=== PATIENT | female | born 1955 | race Caucasian/White ===

== ENCOUNTER → 2023-09-10 13:04 | Outpatient (REF) | payer MEDICARE, SELFPAY | LOC: RAD 13:04 | PROVIDERS: ATTENDING PHYSICIAN Nurse Practitioner Adult Health; FAMILY PHYSICIAN Nurse Practitioner | DX: C34.12 Malignant neoplasm of upper lobe, left bronchus or lung (principal) | CPT/HCPCS: 71260; Q9967 ==

== ENCOUNTER → 2023-11-28 08:11 | Outpatient (REF) | payer MEDICARE, SELFPAY | LOC: HWRAD 08:11 | PROVIDERS: ATTENDING PHYSICIAN Internal Medicine Hematology & Oncology; FAMILY PHYSICIAN Nurse Practitioner | DX: C34.12 Malignant neoplasm of upper lobe, left bronchus or lung (principal) | CPT/HCPCS: 71260; 74177; Q9967 ==

== ENCOUNTER → 2024-01-17 08:41 | Outpatient (REF) | payer MEDICARE, SELFPAY | LOC: PAVMRI 08:41 | PROVIDERS: ATTENDING PHYSICIAN Internal Medicine; FAMILY PHYSICIAN Nurse Practitioner; OTHER PHYSICIAN Internal Medicine Hematology & Oncology | DX: C34.91 Malignant neoplasm of unspecified part of right bronchus or lung (principal); J91.0 Malignant pleural effusion; C34.90 Malignant neoplasm of unspecified part of unspecified bronchus or lung; C80.1 Malignant (primary) neoplasm, unspecified | CPT/HCPCS: 70553 ==

== ENCOUNTER → 2024-04-27 09:19 | Outpatient (REF) | payer MEDICARE, SELFPAY | LOC: HWRAD 09:19 | PROVIDERS: ATTENDING PHYSICIAN Internal Medicine Hematology & Oncology; FAMILY PHYSICIAN Nurse Practitioner; REFERRING PHYSICIAN Internal Medicine | DX: C34.12 Malignant neoplasm of upper lobe, left bronchus or lung (principal) | CPT/HCPCS: 71260; 74177; Q9967 ==

== ENCOUNTER 2024-06-01 09:52 | Emergency (ER) | payer MEDICARE, SELFPAY ==
[2024-06-01 09:57] VITALS: BP 107/65
[2024-06-01 10:11] VITALS: BMI 21.0
[2024-06-01 10:33] LABS: % Basophils 0.5 % (0-2); % Eosinophils 0.6 % (0-6); % Immature Granulocytes 0.6 % (0-0.5); % Lymphocytes 7.8 % (20.5-51.1); % Monocytes 5.1 % (1.7-9.3); % Neutrophils 85.4 % (42.2-75.2); Absolute Lymphocytes 0.5 10^3/uL (1.2-3.4); Absolute Monocytes 0.3 10^3/uL (0.1-0.6); Absolute Neutrophils 5.7 10^3/uL (1.4-6.5); Hematocrit 35.7 % (37.0-47.0); Hemoglobin 12.1 g/dL (12.0-16.0); Mean Corp Hgb Conc. 33.9 g/dL (33.0-37.0); Mean Corpuscular Hgb 31.4 pg (27.0-31.0); Mean Corpuscular Volume 92.7 fL (81.0-99.0); Nucleated Red Blood Cells % 0 %; Platelet Count 141 10^3/uL (130-400); Red Blood Cell Count 3.85 10^6/uL (4.20-5.40); Red Cell Dist. Width 13.1 % (11.5-14.5); White Blood Cell Count 6.6 10^3/uL (4.8-10.8)
--- NOTE | 2024-06-01 10:47 | ED.GENMED ---
History of Present Illness
General
Chief Complaint: Dizziness
Source: patient
Exam Limitations: none
Time Seen by Provider: 06/01/24 10:09
Nursing documentation reviewed up to this point in time: agreed with
History of Present Illness
History of Present Illness:
68-year-old female past medical history of lung cancer currently on oral meds, asthma presenting to the emergency department today with concerns of room 20 dizziness starting roughly an hour ago while sitting at home also associated nausea and
vomiting symptoms improved with sitting very still. Had similar symptoms last year and saw vestibular rehab for this. Improved on their own. She did not take any medication for her symptoms today denies any chest pain shortness breath
palpitations.
Past History
Past History
ED Past Medical History: Asthma and Cancer
ED Past Surgical History: Gynecological
Social History
Tobacco: Former smoker
Review of Systems
Review of Systems
Allergies reviewed?: Yes
All Other Systems: ROS reviewed and negative except as documented in HPI and ROS
Phy Exam
Physical Exam
Physical Exam:
GENERAL: Alert , in no apparent distress
EYE: Reproducible horizontal nystagmus with head movement. Pupils equal and reactive
NECK: Supple, no significant adenopathy.
ENT: o/p clr, mmm.
CARDIAC: Regular rate and rhythm .
LUNGS: Clear breath sounds bilaterally, no acute respiratory distress, no wheezes/rales/rhonchi
ABDOMEN: Soft, without focal tenderness, no r/g, no cvat
NEUROLOGICAL: Alert and oriented, no focal neuro deficits
SKIN: Warm and dry, skin intact.
MUSCULOSKELETAL: No edema, well perfused.
PSYCH: Normal and appropriate interaction.
Course
Orders/Labs/Results
Orders:
Orders
06/01/24 10:14
Electrocardiogram (*1) Urgent
Reason for Study: Chest Pain
Cardiac Monitoring- Treatment ONCE
EKG- Treatment ONCE
06/01/24 10:24
Complete Blood Count/With Diff Urgent
Comprehensive Metabolic Panel Urgent
06/01/24 10:26
Pt Eval And Treat Urgent
Treatment: vestibular
Activity Level: Ambulate
06/01/24 11:36
Meclizine [Antivert] 25 mg PO NOW STA
06/01/24 12:29
Urinalysis Reflex To Culture Urgent
Date Specimen was Collected: 06/01/24
Time Specimen was Collected: 12:29
Abnormal Lab Results
06/01/24
10:24
RBC 3.85 L 10^6/uL
(4.20-5.40)
Hct 35.7 L %
(37.0-47.0)
MCH 31.4 H pg
(27.0-31.0)
Absolute Lymphs (auto) 0.5 L 10^3/uL
(1.2-3.4)
Immature Gran % 0.6 H %
(0-0.5)
Neutrophils % 85.4 H %
(42.2-75.2)
Lymphocytes % 7.8 L %
(20.5-51.1)
Glucose 109 H mg/dl
(70-99)
06/01/24 10:24
06/01/24 10:24
Vital Signs
Initial and Last Documented VS:
Initial Vital Signs
Temp Pulse Resp BP Pulse Ox
98.2 F 61 16 107/65 98
06/01/24 09:57 06/01/24 09:57 06/01/24 09:57 06/01/24 09:57 06/01/24 09:57
Last Documented Vital Signs
Temp Pulse Resp BP Pulse Ox
98.2 F 64 13 128/62 100
06/01/24 09:57 06/01/24 13:15 06/01/24 13:15 06/01/24 13:00 06/01/24 13:15
MDM/Problems Addressed
MDM/Problems Addressed:
68-year-old female presenting to the emergency department today with concerns of room spinning dizziness starting this morning without specific inciting event associated nausea and vomiting when dizzy denies additional associated symptoms. Here
vital signs are normal neurologic examination is normal other than horizontal nystagmus that is reproducible only with movement when sitting still it is fatigable. Patient was seen by vestibular rehab and felt symptoms consistent with neuritis.
Otherwise here labs unremarkable urinalysis normal EKG normal. Patient was given meclizine with full resolution of symptoms. Symptoms seem unlikely be consistent with central process advised for symptomatic management at home and ENT follow-up as
needed.
*Critical Care Note
Total Time (30-74mins, 75-104mins- exclusive of procedures): Not Applicable
ED Attending Note
-
Portions of this chart may have been created with voice recognition software.� Occasional wrong word or��sound alike� substitutions may have occurred due to the inherent limitations of voice recognition software.
Discharge Plan
Departure
Patient Disposition: Home (Routine Discharge)
Date of Disposition: 06/01/24
Time of Disposition: 13:48
Patient with high blood pressure during this ER visit?: No
Condition: Good
Covid-19: Not Applicable
Discharge Problem:
Vertigo
Instructions: Vertigo (a Type of Dizziness) (DC)
Prescriptions:
New
meclizine 25 mg tablet
25 mg PO TID PRN (Reason: dizziness) Qty: 7 0RF
No Action
Vitamin C 1,000 mg Tablet Extended Release
1,000 mg PO DAILY
folic acid 400 mcg Tablet
0.4 mg PO DAILY
vitamin B complex Tablet
1 tab PO DAILY
choline Capsule
1 cap PO DAILY
vitamin E-selenium 400-50 unit-mcg Tablet
1 tab PO DAILY
melatonin 1 mg Tablet
1 mg PO HS PRN (Reason: Insomnia)
Vitamin W72-Yzaly Tablet
1 tab PO DAILY
Vitamin D (with calcium) 77-400 mg-unit Tablet
1 tab PO DAILY
calcium citrate 250 mg calcium Tablet
500 mg PO DAILY
Probiotic 3 billion cell Capsule
3,000 mmu cells PO WEEKLY
biotin 1,000 mcg Tablet,Chewable
1,000 mcg PO DAILY
lidocaine [Lidoderm] 5 % adhesive patch,medicated
1 patch topical DAILY Qty: 15 0RF
hydrocodone-acetaminophen 5-325 mg tablet
1 tab PO Q8H PRN (Reason: Pain) Qty: 10 0RF
Referrals:
Matilde Dodge MD [Family Provider] -
Yuan Romeo MD [Active] - Follow up in 5-7 days
Activity Restrictions/Additional Instructions:
You came to the emergency department today with concerns of dizziness. Here he had a reassuring assessment. Please follow closely with ENT. Return to the emergency department any worsening, new or concerning symptoms.
Interventions
Interventions:
*Risk Screen - Suicide Last Done: 06/01/24 09:59
*General Assessment Last Done: 06/01/24 10:11
*Neglect/Abuse Screening Last Done: 06/01/24 09:59
ED- Fall Risk Assessment Last Done: 06/01/24 10:32
*ED COVID-19 Vaccine History Last Done: 06/01/24 10:11
ED- Neurological Assessment Last Done: 06/01/24 10:32
ED- Cardiac Assessment Last Done: 06/01/24 10:32
ED Swallowing Screen Last Done: 06/01/24 10:32
Discharge Date and Time
Print Language: LUX[place]GISH
[2024-06-01 10:48] LABS: ALT (SGPT) 23 U/L (0-35); AST (SGOT) 25 U/L (14-36); Albumin 4.2 g/dl (3.5-5.0); Alkaline Phosphatase 55 U/L (38-126); Blood Urea Nitrogen 16 mg/dl (7-17); Calcium 9.3 mg/dl (8.4-10.2); Carbon Dioxide 26 mmol/L (22-30); Chloride 103 mmol/L (98-107); Estimated Creatinine Clearance 60 ml/min; Glucose 109 mg/dl (70-99); Potassium 4.2 mmol/L (3.5-5.1); Sodium 139 mmol/L (135-145); Total Bilirubin 0.3 mg/dl (0.2-1.3); Total Protein 6.5 g/dl (6.3-8.2); eGFR > 60.00
[2024-06-01 11:20] VITALS: BP 126/67
[2024-06-01 11:25] VITALS: BP 126/67
--- NOTE | 2024-06-01 11:50 | EDRN ---
Pt was able to ambulate to BR and back to stretcher w/ less spinning sensation and no nausea. Pt provided a urine spec.
--- NOTE | 2024-06-01 11:50 | EDRN ---
Kaela HICKS in room w/pt at this time.
[2024-06-01] MEDS: ANTIVERT 25 MG PO (11:57)
--- NOTE | 2024-06-01 12:04 | EDRN ---
Pt attempting urine spec at this time.
[2024-06-01 12:28] VITALS: BP 123/61
[2024-06-01 13:00] VITALS: BP 128/62
[2024-06-01 13:19] LABS: Urine Albumin Negative (Neg - Trace); Urine Bilirubin Negative (Negative); Urine Character Very Cloudy (Clear); Urine Color Yellow; Urine Glucose Negative (Negative); Urine Ketone Negative (Negative); Urine Leukocyte Negative (Negative); Urine Nitrite Negative (Negative); Urine Occult Blood Negative (Negative); Urine Urobilinogen Negative (Neg - 1+)
--- NOTE | 2024-06-01 13:41 | EDRN ---
Kaela HICKS in room w/ pt.
--- NOTE | 2024-06-01 13:55 | EDRN ---
Pt states she no longer has any nausea or dizziness/spinning w/ movement.
== END 2024-06-01 13:58 | disposition home or self-care (01) ==
LOC: EMR 09:52
PROVIDERS: Physician Assistant; EMERGENCY PHYSICIAN Emergency Medicine; FAMILY PHYSICIAN Family Medicine
DX: R42 Dizziness and giddiness (principal); J45.909 Unspecified asthma, uncomplicated
CPT/HCPCS: 99284; 80053; 81003; 85025; 93005

== ENCOUNTER → 2024-07-01 10:58 | Outpatient (REF) | payer MEDICARE, SELFPAY ==
[2024-07-01 12:11] LABS: % Basophils 0.3 % (0-2); % Eosinophils 1.7 % (0-6); % Lymphocytes 24.6 % (20.5-51.1); % Monocytes 15.6 % (1.7-9.3); % Neutrophils 57.8 % (42.2-75.2); Absolute Eosinophils 0.1 10^3/uL (0-0.7); Absolute Lymphocytes 0.7 10^3/uL (1.2-3.4); Absolute Monocytes 0.5 10^3/uL (0.1-0.6); Absolute Neutrophils 1.7 10^3/uL (1.4-6.5); Hematocrit 35.7 % (37.0-47.0); Mean Corp Hgb Conc. 33.6 g/dL (33.0-37.0); Mean Corpuscular Hgb 31.8 pg (27.0-31.0); Mean Corpuscular Volume 94.7 fL (81.0-99.0); Mean Platelet Volume 10.3 fL (7.4-10.4); Nucleated Red Blood Cells % 0 %; Platelet Count 159 10^3/uL (130-400); Red Blood Cell Count 3.77 10^6/uL (4.20-5.40); Red Cell Dist. Width 13.4 % (11.5-14.5)
[2024-07-01 14:22] LABS: ALT (SGPT) 21 U/L (0-35); AST (SGOT) 24 U/L (14-36); Albumin 4.3 g/dl (3.5-5.0); Alkaline Phosphatase 45 U/L (38-126); Blood Urea Nitrogen 15 mg/dl (7-17); Calcium 9.4 mg/dl (8.4-10.2); Carbon Dioxide 28 mmol/L (22-30); Chloride 102 mmol/L (98-107); Glucose 56 mg/dl (70-99); Potassium 4.3 mmol/L (3.5-5.1); Sodium 137 mmol/L (135-145); Total Bilirubin 0.5 mg/dl (0.2-1.3); Total Protein 6.5 g/dl (6.3-8.2); eGFR > 60.00
== END ==
LOC: REG 10:58
PROVIDERS: ATTENDING PHYSICIAN Internal Medicine Hematology & Oncology; PRIMARYCARE PHYSICIAN Nurse Practitioner
DX: C34.12 Malignant neoplasm of upper lobe, left bronchus or lung (principal)
CPT/HCPCS: 36415; 80053; 85025

== ENCOUNTER → 2024-07-27 09:14 | Outpatient (REF) | payer MEDICARE, SELFPAY | LOC: RAD 09:14 | PROVIDERS: ATTENDING PHYSICIAN Internal Medicine Hematology & Oncology; FAMILY PHYSICIAN Nurse Practitioner | DX: C34.12 Malignant neoplasm of upper lobe, left bronchus or lung (principal) | CPT/HCPCS: 71260; 74177; Q9967 ==

== ENCOUNTER → 2024-10-26 08:40 | Outpatient (REF) | payer MEDICARE, SELFPAY | LOC: RAD 08:40 | PROVIDERS: ATTENDING PHYSICIAN Internal Medicine Hematology & Oncology; FAMILY PHYSICIAN Nurse Practitioner; REFERRING PHYSICIAN Internal Medicine | DX: C34.12 Malignant neoplasm of upper lobe, left bronchus or lung (principal) | CPT/HCPCS: 71260; 74177; Q9967 ==

== ENCOUNTER → 2025-01-07 07:41 | Outpatient (REF) | payer MEDICARE, SELFPAY | LOC: PAVMRI 07:41 | PROVIDERS: ATTENDING PHYSICIAN Internal Medicine Hematology & Oncology; FAMILY PHYSICIAN Nurse Practitioner; REFERRING PHYSICIAN Internal Medicine | DX: C34.12 Malignant neoplasm of upper lobe, left bronchus or lung (principal) | CPT/HCPCS: 70553; A9575 ==

== ENCOUNTER 2025-04-15 18:07 | Inpatient (IN) | payer MEDICARE, SELFPAY ==
[2025-04-15] VITALS (9 sets, daily range): BP systolic 94–126; BP diastolic 53–62; BMI 21.5; BMI 20.6
--- NOTE | 2025-04-15 14:45 | ED.GENMED ---
History of Present Illness
General
Chief Complaint: Fatigue
Time Seen by Provider: 04/15/25 14:25
History of Present Illness
History of Present Illness:
69 yo female presents for evaluation of generalized weakness. Began with cold/flu symptoms 2d ago, tested positive for COVID last night. Reports a mild dry cough, nausea, and lightheadedness. She has been attempting to eat and drink however has
essentially no appetite. Denies shortness of breath or chest pain at this time
Past History
Past History
ED Past Medical History: Asthma and Cancer
ED Past Surgical History: Gynecological
Social History
Tobacco: Former smoker
Review of Systems
Review of Systems
Allergies reviewed?: Yes
All Other Systems: ROS reviewed and negative except as documented in HPI and ROS
Phy Exam
Physical Exam
Physical Exam:
GEN: Well appearing, NAD, WDWN
HEENT: Oral mucosa moist, no scleral icterus
Cardiac: Regular rate
Lung: No respiratory distress, no tachypnea, lungs clear to auscultation
MSK: No gross deformity or injuries
Skin: Good color, no pallor or jaundice, no rashes
Neuro: AO x3, moves all extremities freely
Psych: Calm, cooperative
Course
Orders/Labs/Results
Orders:
Orders
04/15/25 14:43
0.9% Sodium Chloride 500 ml [Nss] 500 ml IV BOLUS
04/15/25 14:44
Dextrose 5%/0.45%Sodchl 500 ml [D5/0.45%NaCl] 500 ml IV 500 mls/hr
04/15/25 14:48
Complete Blood Count/With Diff Urgent
Comprehensive Metabolic Panel Urgent
Serum Osmolality Urgent
TSH Urgent
Comment: ADD ON
04/15/25 Dinner
Regular
At Your Request: Full Participation
Does patient need a safe tray?: No
04/15/25 15:25
Add On- LAB Urgent
Tests Added?: serum osmolality, TSH
04/15/25 16:40
Osmolality, Random Urine Urgent
Date Specimen was Collected: 04/15/25
Time Specimen was Collected: 16:38
Urinalysis Reflex To Culture Urgent
Date Specimen was Collected: 04/15/25
Time Specimen was Collected: 16:38
Urine Microscopic Reflex Cult Urgent
Urine Sodium Urgent
Date Specimen was Collected: 04/15/25
Time Specimen was Collected: 16:38
04/15/25 17:14
Acetaminophen [Tylenol] 650 mg PO Q6HPRN PRN
04/15/25 17:15
0.9% Sodium Chloride 1000 ml [Nss] 1,000 ml IV 80 mls/hr
04/15/25 17:16
Sodium Chloride/Aloe Vera [Beyer Saline Nasal Gel] See Dose Instructions NASAL Q2HPRN PRN
Rx Incentive Spirometry [RESP] Routine
Frequency: q1h while awake
Rx Pep / Acapela [RESP] Routine
04/15/25 17:21
Admit/Transfer Patient As Directed
Co-Sign Provider:
Level of Care: Inpatient admission
Assign to:: Medical/Surgical
Physician / Group: iveth roth
Diagnosis: hyponatremia
Reason for Hospitalization: hyponatremia
Expected length of stay greater than two midnights?: Yes
ELOS- Estimated Length of Stay in days: 2
I certify the patient meets the requirements for IP care: Yes
PRN Pain Medication Management As Directed
May give lesser potent ordered pain med per pt: Yes
preference::
Protocol:: Medication orders for pain may be administered in a
manner that supports deferring to patient preference
when the pt is:
- Requesting an ordered lesser potent pain medication.
Least to most potent pain medications are defined
as: acetaminophen < NSAID < tramadol < opioids
(morphine, oxycodone, hydromorphone).
- Requesting a lesser dose of the same medication IF
ORDERED.
- Requesting a less intrusive route of administration
if both routes are prescribed by the provider (PO <
IV).
04/15/25 17:24
Code Status As Directed
Resuscitation Status: Full Code
04/15/25 18:05
Urine Osmolality Random [Osmolality, Random Urine] Stat
Date Specimen was Collected: 04/15/25
Time Specimen was Collected: 17:36
Urine Protein/Creat Ratio (Random) [Protein/Creat Ratio (Random)] Stat
Date Specimen was Collected: 04/15/25
Time Specimen was Collected: 17:36
Urine Sodium Stat
Date Specimen was Collected: 04/15/25
Time Specimen was Collected: 17:36
04/15/25 20:36
BMP [Basic Metabolic Panel] Routine
04/16/25 06:00
Basic Metabolic Panel IN AM
Complete Blood Count/No Diff IN AM
04/17/25 06:00
Basic Metabolic Panel IN AM
Complete Blood Count/No Diff IN AM
04/18/25 06:00
Basic Metabolic Panel IN AM
Complete Blood Count/No Diff IN AM
04/19/25 06:00
Basic Metabolic Panel IN AM
Complete Blood Count/No Diff IN AM
04/20/25 06:00
Basic Metabolic Panel IN AM
Complete Blood Count/No Diff IN AM
04/21/25 06:00
Basic Metabolic Panel IN AM
Complete Blood Count/No Diff IN AM
Abnormal Lab Results
04/15/25 04/15/25 04/15/25
14:48 16:40 18:05
RBC 3.33 L 10^6/uL
(4.20-5.40)
Hgb 10.5 L g/dL
(12.0-16.0)
Hct 30.3 L %
(37.0-47.0)
MCH 31.5 H pg
(27.0-31.0)
Absolute Lymphs (auto) 0.3 L 10^3/uL
(1.2-3.4)
Neutrophils % 84.3 H %
(42.2-75.2)
Lymphocytes % 5.1 L %
(20.5-51.1)
Monocytes % 10.2 H %
(1.7-9.3)
Sodium 120 L mmol/L
(135-145)
Chloride 92 L mmol/L
(98-107)
Serum Osmolality 250 L mOsm/kg
(275-300)
Total Protein 6.2 L g/dl
(6.3-8.2)
TSH 0.06 L uIU/ml
(0.47-4.68)
Urine Ketones 3+ A
(Negative)
Ur Occult Blood Reflex 1+ A
(Negative)
Urine Bacteria (Reflex) Few A
(Negative)
Urine Osmolality 174 L mOsm/kg 89 L mOsm/kg
(300-900) (300-900)
Urine Sodium 14 L mmol/L 7 L mmol/L
(30-90) (30-90)
Urine Glucose 2+ A
(Negative)
04/15/25 14:48
04/15/25 14:48
Vital Signs
Initial and Last Documented VS:
Initial Vital Signs
Temp Pulse Resp BP Pulse Ox
98.4 F 79 14 109/53 97
04/15/25 13:20 04/15/25 13:20 04/15/25 13:20 04/15/25 13:20 04/15/25 13:20
Last Documented Vital Signs
Temp Pulse Resp BP Pulse Ox
99.7 F 68 15 96/59 98
04/15/25 15:00 04/15/25 18:30 04/15/25 18:30 04/15/25 18:00 04/15/25 18:30
MDM/Problems Addressed
MDM/Problems Addressed:
Significant hyponatremia is likely driving her fatigue symptoms. Likely multifactorial in the setting of hypovolemia as well as potential SIADH in the setting of known metastatic lung cancer. Given initial IV fluid resuscitation with D5
half-normal and normal saline. Will be admitted to the hospitalist service for further management
*Pulse Oximetry
SaO2: 99
Oxygen Mode of Delivery: Room air
Patient hypoxic: no
*Critical Care Note
Total Time (30-74mins, 75-104mins- exclusive of procedures): Not Applicable
ED Attending Note
-
Portions of this chart may have been created with voice recognition software.� Occasional wrong word or��sound alike� substitutions may have occurred due to the inherent limitations of voice recognition software.
Discharge Plan
Departure
Patient Disposition: Admit
Date of Disposition: 04/15/25
Time of Disposition: 16:12
Admit to: Med/Surg
Presentation/result/management discussed w/ accepting MD/DO: Hospitalist
Discharge Problem:
Acute hyponatremia, COVID
Interventions
Interventions:
*Risk Screen - Suicide Last Done: 04/15/25 13:20
*General Assessment Last Done: 04/15/25 13:20
*Neglect/Abuse Screening Last Done: 04/15/25 13:20
*ED- Fall Risk Assessment Last Done: 04/15/25 14:34
*ED COVID-19 Vaccine History Last Done: 04/15/25 13:20
*Nursing Disposition Last Done: 04/15/25 18:46
[2025-04-15 14:56] LABS: Hematocrit 30.3 % (37.0-47.0); Hemoglobin 10.5 g/dL (12.0-16.0); Mean Corp Hgb Conc. 34.7 g/dL (33.0-37.0); Mean Corpuscular Volume 91.0 fL (81.0-99.0); Nucleated Red Blood Cells % 0 %; Platelet Count 139 10^3/uL (130-400); Red Cell Dist. Width 12.8 % (11.5-14.5)
[2025-04-15] MEDS: D5/0.45%NACL 500 IV (15:13)
[2025-04-15] MEDS: NSS 500 IV (15:14)
[2025-04-15 15:22] LABS: ALT (SGPT) 16 U/L (0-35); AST (SGOT) 26 U/L (14-36); Albumin 4.0 g/dl (3.5-5.0); Alkaline Phosphatase 54 U/L (38-126); Blood Urea Nitrogen 11 mg/dl (7-17); Calcium 8.4 mg/dl (8.4-10.2); Carbon Dioxide 24 mmol/L (22-30); Chloride 92 mmol/L (98-107); Estimated Creatinine Clearance 69 ml/min; Glucose 97 mg/dl (70-99); Potassium 4.2 mmol/L (3.5-5.1); Sodium 120 mmol/L (135-145); Total Protein 6.2 g/dl (6.3-8.2); eGFR > 60.00
[2025-04-15 17:02] LABS: TSH 0.06 uIU/ml (0.47-4.68)
[2025-04-15 17:12] LABS: Urine Character Clear (Clear)
--- NOTE | 2025-04-15 17:30 | HPS.HSE ---
Family Physician
-
Family Physician: ROGELIO Corral
Chief Complaint
-
sob and weakness
History of Present Illness
69 female history of non-small cell lung cancer on immunotherapy daily who presents with a 2-day history of progressively worsening shortness of breath cough congestion with poor p.o. intake and generalized weakness. Found to have COVID on home
test last night. In the ED not requiring oxygen did receive some IV fluids with 500 cc of NS. Her CBC is quite unremarkable apart from a hemoglobin of 10.5. BMP remarkable for sodium of 120 chloride of 92 fortunately creatinine BUN is 0.6 and 11.
Serum awesome 250. Urine awesome 174. No urine sodium noted.
Medical History
Past Medical History
Past Medical History: Reports Cancer
Past Surgical History: Reports Gynocological
Social History
Drug: None
Family History
Family History: Not pertinent
Allergies / Home Medications
Allergies reflects when Allergies were last updated in [employer].
Home Medications with original date entered in [employer]
Allergy/Medication List:
Allergies
Allergy/AdvReac Type Severity Reaction Status Date / Time
albuterol Allergy Palpitation Verified 06/01/24 09:59
with upper
back pain
almond Allergy Shortness Verified 06/01/24 09:59
of Breath
amoxicillin (From Augmentin) Allergy Shortness Verified 06/01/24 09:59
of Breath
aspirin Allergy Shortness Verified 06/01/24 09:59
of Breath
cabbage Allergy Stomach Verified 06/01/24 09:59
pain
cefuroxime (From Ceftin) Allergy Shortness Verified 06/01/24 09:59
of Breath
chocolate Allergy Unknown Verified 03/08/25 15:11
clavulanic acid (From Allergy Shortness Verified 06/01/24 09:59
Augmentin) of Breath
egg Allergy Diarrhea Verified 06/01/24 09:59
gluten Allergy Shortness Verified 06/01/24 09:59
of Breath
ibuprofen (From Advil) Allergy Shortness Verified 06/01/24 09:59
of Breath
levofloxacin (From Levaquin) Allergy Shortness Verified 06/01/24 09:59
of Breath
loracarbef (From Lorabid) Allergy Shortness Verified 06/01/24 09:59
of Breath
Milk Containing Products Allergy Unknown Verified 03/08/25 15:10
(Dairy)
mold Allergy Shortness Verified 06/01/24 09:59
of Breath
mometasone furoate (From Allergy Shortness Verified 06/01/24 09:59
Nasonex) of Breath
morphine Allergy Shortness Verified 06/01/24 09:59
of Breath
naproxen Allergy Stomach Verified 06/01/24 09:59
pain
pepper (genus Capsicum) Allergy Unknown Verified 03/08/25 15:11
Sulfa (Sulfonamide Allergy Shortness Verified 06/01/24 09:59
Antibiotics) of Breath
Kaufman's yeast Allergy Shortness Uncoded 06/01/24 09:59
of Breath
Sharma's yeast Allergy Shortness Uncoded 06/01/24 09:59
of Breath
cats Allergy Shortness Uncoded 06/01/24 09:59
of Breath
dogs Allergy Shortness Uncoded 06/01/24 09:59
of Breath
Dust mites Allergy Shortness Uncoded 06/01/24 09:59
of Breath
insect stings Allergy Shortness Uncoded 06/01/24 09:59
of Breath
steroids Allergy Shortness Uncoded 06/01/24 09:59
of Breath
Home Medications
ascorbic acid (vitamin C) 1,000 mg tablet,extended release (Vitamin C ER) 1,000 mg PO DAILY 08/15/22
vitamin B complex 1 tab PO DAILY 08/15/22
Lactobac no.2-Bifidobac no.1-S. thermo 112.5 billion cell capsule (Visbiome) 1 cap PO DAILY 04/15/25
acetaminophen 325 mg tablet (Tylenol) 650 mg PO Q6HPRN PRN mild pain 04/15/25
biotin 10,000 mcg capsule 10,000 mcg PO DAILY 04/15/25
calcium carbonate 500 mg PO DAILY 04/15/25
folic acid 1 mg tablet 1 mg PO DAILY 04/15/25
osimertinib 80 mg tablet (Tagrisso) 80 mg PO DAILY@1600 04/15/25
Review of Systems
-
A 12 point ROS was completed and negative except as noted: Yes
Physical Exam
Vital Signs
Vital Signs
Temp Pulse Resp BP Pulse Ox
99.7 F 76 20 103/59 99
04/15/25 15:00 04/15/25 14:38 04/15/25 14:38 04/15/25 14:37 04/15/25 14:45
Physical Exam
General: Well Developed, No Apparent Distress, Comfortable and Conversant
HEENT: NormoCephalic and Anicteric; No Moist mucous membranes
Respiratory: Clear; No Wheezes, Rales or Rhonchi
Cardiac: S1/S2 and Regular Rhythm
GI: Soft, Non Tender, Non Distended and Normal Bowel Sounds
Musculoskeletal: No Clubbing and No Cyanosis
Skin: Warm and Dry
Neuro: Awake and AO x 3
Psych: Calm
Laboratory Results
-
04/15/25 14:48
04/15/25 14:48
Laboratory Results
Total Bilirubin 0.3 mg/dl (0.2-1.3) 04/15/25 14:48
AST 26 U/L (14-36) 04/15/25 14:48
ALT 16 U/L (0-35) 04/15/25 14:48
Alkaline Phosphatase 54 U/L (38-126) 04/15/25 14:48
Impression/Plan
-
Severe hyponatremia hypochloremia, hypovolemic
Likely secondary to poor p.o. intake
Provide isotonic fluids
Repeat BMP in 6 hours
Then again in the morning
Adjust fluids as needed
If getting worse then consult nephrology
Correct with an 6-8 mEq over 24 hours
Check urine sodium
COVID
Fortunately not requiring supplemental oxygen
No indications for steroids antivirals
Antipyretics as needed
Mucolytic's as needed
Non-small cell lung cancer
On immunotherapy with Tagrisso daily
Have sent a message via [place] text to primary oncologist Dr. Eric to see if she can continue this medication when infected with COVID and with hyponatremia
Therefore at this time we will continue to hold unless primary oncologist provides an okay to provide
[2025-04-15 17:38] LABS: Urine Red Blood Cell 0-2 /HPF (0-2); Urine Squamous Cell 21-25 /LPF (Few)
[2025-04-15] MEDS: NSS 1000 IV (18:10)
[2025-04-15] MEDS: LOVENOX 30 MG SC (21:35)
--- NOTE | 2025-04-15 23:30 | PTCARENOTE ---
1949- Patient received from ED via stretcher; Admitted for Acute hyponatremia/ COVID. [employer] orders, VSS. AAOx3, steady on feet, no c/o pain. IVF infusing per MD order. PMH/ medications reviewed by this RN and Pt/spouse. Plan of care discussed.
Call garcia within reach.
[2025-04-16 01:11] LABS: Blood Urea Nitrogen 10 mg/dl (7-17); Calcium 8.1 mg/dl (8.4-10.2); Carbon Dioxide 25 mmol/L (22-30); Chloride 101 mmol/L (98-107); Estimated Creatinine Clearance 59 ml/min; Glucose 93 mg/dl (70-99); Potassium 4.2 mmol/L (3.5-5.1); Sodium 130 mmol/L (135-145); eGFR > 60.00
[2025-04-16] MEDS: ANESTHETIC LOZENGE 1 LOZENGE PO (01:30)
[2025-04-16] MEDS: TYLENOL 650 MG PO (04:56)
[2025-04-16] MEDS: NSS 1000 IV (07:09)
[2025-04-16 07:30] VITALS: BP 114/62
[2025-04-16 08:04] LABS: Glucose - Point of Care 97 mg/dl (70-99)
[2025-04-16 08:21] LABS: Hematocrit 29.5 % (37.0-47.0); Hemoglobin 10.4 g/dL (12.0-16.0); Mean Corp Hgb Conc. 35.3 g/dL (33.0-37.0); Mean Corpuscular Volume 91.9 fL (81.0-99.0); Platelet Count 126 10^3/uL (130-400); Red Cell Dist. Width 12.8 % (11.5-14.5)
[2025-04-16 08:27] VITALS: BP 114/62
--- NOTE | 2025-04-16 08:44 | HPS.HSE ---
Addendum entered and electronically signed by Jose Du MD 04/17/25 14:52:
see update note
Original Note:
Family Physician
-
Family Physician: ROGELIO Corral
Chief Complaint
-
weakness in setting of covid
History of Present Illness
69yoF PMH lung adenocarcinoma on Tagrisso presenting with hyponatremia and weakness in setting of covid infection.
Pt reports being in her usual state of health until she began having a viral prodrome that prompted her to take a covid test. She tested positive for covid at home 2 days ago. Yesterday she became very weak prompting her presentation. She reports
reduced appetite and very minimal to no PO intake. She describes a cough, sore throat, and insomnia since being sick, though she does report it is worse being in the hospital dry air. Denies nausea, vomting. She has diarrhea at baseline if she does
not take her own cocktail of vitamins and probiotics due to her immunotherapy tagrisso.
Today, pt reports feeling better with improved weakness but continued cough and sore throat.
Pt is being treated for her adenocarcinom by Dr. Eric at [facility] diagnosed 2 years ago. She has only been treated with the tagrisso, not currently on chemotherapy. No RT or surgery.
Medical History
Past Medical History
Past Medical History: Reports Cancer (lung adenocarcinoma dx 2 years ago stable on tagrisso)
Past Surgical History: Reports None
Social History
Tobacco: Non-smoker
Personal:
Living: With Family
Family History
Family History: Not pertinent
Allergies / Home Medications
Allergies reflects when Allergies were last updated in [employer].
Home Medications with original date entered in [employer]
Allergy/Medication List:
Pt reports extensive list but corroborates listed one in chart should be accurate.
albuterol
almond
amoxicillon
aspirin
cabbage
cefuroxime
chocolate
clavulanic acid
egg
ibuprofen
levofloxacin
loracarbef
milk
mold
mometasone furoate
morphine
naproxen
pepper
prednisone
sulfa
Review of Systems
-
History Source: Patient
A 12 point ROS was completed and negative except as noted: Yes
Constitutional: Reports Fatigue and Sleep Disturbance
EENT: Reports Sore Throat
Respiratory: Reports Cough
Cardiac: Denies Chest Pain
Abdomen/GI: Reports Diarrhea; Denies Abdominal Pain, Nausea or Vomiting
Physical Exam
Vital Signs
Vital Signs
Temp Pulse Resp BP Pulse Ox
97.8 F 66 16 114/62 98
04/16/25 07:30 04/16/25 07:30 04/16/25 07:30 04/16/25 07:30 04/16/25 07:30
Physical Exam
General: Well Developed, No Apparent Distress and Comfortable
HEENT: NormoCephalic, Anicteric, Moist mucous membranes and Atraumatic
Respiratory: Clear and Non Labored Respirations
Cardiac: S1/S2 and Regular Rhythm
GI: Soft, Non Tender and Non Distended
Musculoskeletal: No Clubbing, No Cyanosis and No Edema
Skin: Warm and Dry
Neuro: AO x 3, No Motor Deficits and Nonfocal/grossly intact
Psych: Calm
Laboratory Results
-
04/16/25 07:45
Laboratory Results
Total Bilirubin 0.3 mg/dl (0.2-1.3) 04/15/25 14:48
AST 26 U/L (14-36) 04/15/25 14:48
ALT 16 U/L (0-35) 04/15/25 14:48
Alkaline Phosphatase 54 U/L (38-126) 04/15/25 14:48
Impression/Plan
-
IMPRESSION:
69yoF PMH lung adenocarcinoma on Tagrisso presenting with hyponatremia and weakness in setting of covid infection.
AFVSS on room air. Pt is laying comfortably in bed reporting continued cough and sore throat but improved weakness after receiving IVF. Na improved from 120 to 130 with NS. Urine Osm and Na low in addition to resolution with NS seems to be
indicative of hyponatremia cause being related to poor PO intake in setting of covid. Hx lung cx but not concerned with SIADH or paraneoplastic syndrome with quick resolution of hyponatremia and symptoms with IVF, unlikely with adenocarcinoma.
We had thorough discussion regarding resuming regular diet as to not increase salt intake more than normal to prevent peripheral edema related to tagrisso. She does not have peripheral edema at this time, but we discussed if she overcorrects with
too much Na addition to her normal diet it could cause worsened edema. However, we stressed the importance of PO intake and resuming normal diet. We encouraged pt to represent to ED if her prior symptoms resume and to manage conservatively.
Alerted Dr. Eric of pt's admission. Spoke with on-call oncologist about continuing tagrisso in setting of covid infection.
PLAN:
#Hyponatremia
#covid
- Encourage normal PO intake
- Na normalizing 131
- Repeat CMP outpt in 3 days
#Lung cancer
- Follow with Dr. Eric
- Continue tagrisso
DC home.
[2025-04-16 08:58] LABS: Blood Urea Nitrogen 7 mg/dl (7-17); Calcium 8.0 mg/dl (8.4-10.2); Carbon Dioxide 24 mmol/L (22-30); Chloride 102 mmol/L (98-107); Estimated Creatinine Clearance 69 ml/min; Glucose 87 mg/dl (70-99); Potassium 4.0 mmol/L (3.5-5.1); Sodium 131 mmol/L (135-145); eGFR > 60.00
--- NOTE | 2025-04-16 12:23 | CM ---
Alert awake oriented patient who lives with Jeremías in a 1 story home with 1 step to enter and bed/bathroom on first floor.Pt here with Covid.
Offered VN she declined need.Pt independent in driving and all ADLs.
Her is here to drive her home.
No adaptive devices.
No HX VN/SNF
Pharmacy [facility] [address]
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
PLAN Home no needs
[2025-04-16 13:29] VITALS: BP 93/52
--- NOTE | 2025-04-16 13:59 | W.PN.UPDATE ---
Update Note
Progress Note Update
Hyponatremia improving on IV fluids
Continue to encourage p.o. intake
COVID fortunately no requiring supplemental oxygen
No indication for steroids antivirals
Antipyretics as needed mucolytic's as needed
Non-small cell lung cancer on immunotherapy continue per on-call hematology oncology
[facility]
--- NOTE | 2025-04-16 15:00 | W.DCSUMMARY ---
Discharge Summary
Discharge Data
Date of Admission: 04/15/25
Date of Discharge: 04/16/25
-
Pending Results: No
Hospital Course
IMPRESSION:
69yoF PMH lung adenocarcinoma on Tagrisso presenting with hyponatremia and weakness in setting of covid infection.
AFVSS on room air. Pt is laying comfortably in bed reporting continued cough and sore throat but improved weakness after receiving IVF. Na improved from 120 to 130 with NS. Urine Osm and Na low in addition to resolution with NS seems to be
indicative of hyponatremia cause being related to poor PO intake in setting of covid. Hx lung cx but not concerned with SIADH or paraneoplastic syndrome with quick resolution of hyponatremia and symptoms with IVF, unlikely with adenocarcinoma.
We had thorough discussion regarding resuming regular diet as to not increase salt intake more than normal to prevent peripheral edema related to tagrisso. She does not have peripheral edema at this time, but we discussed if she overcorrects with
too much Na addition to her normal diet it could cause worsened edema. However, we stressed the importance of PO intake and resuming normal diet. We encouraged pt to represent to ED if her prior symptoms resume and to manage conservatively.
Alerted Dr. Eric of pt's admission. Spoke with on-call oncologist about continuing tagrisso in setting of covid infection.
PLAN:
#Hyponatremia
#covid
- Encourage normal PO intake
- Na normalized 131 with IVF
- Repeat CMP outpt in 3 days
#Lung cancer
- Follow with Dr. Eric
- Continue tagrisso
Discharge Plan
-
Patient Disposition: Home (Routine Discharge)
Discharge Diagnosis/Procedures: hyponatremia in setting of covid
Condition: Fair
Diet: No restrictions
Additional Diets: ensure enough food intake, regular diet
Activity: No restrictions
Driving Restrictions: As prior to admission
Bathing Restrictions: None
Blood Work: BMP in 3-5 days
Referrals:
Reina Farris CRNP [Family Provider, Internal Medicine]
Additional Discharge Medication Instructions: Follow up with your PCP once you get your lab work done 3-5 days. Use over the counter nasal saline sprays for congestion.
Prescriptions:
Continued
Vitamin C 1,000 mg Tablet Extended Release
1,000 mg PO DAILY
vitamin B complex Tablet
1 tab PO DAILY
acetaminophen [Tylenol] 325 mg Tablet
650 mg PO Q6HPRN PRN (Reason: mild pain)
calcium carbonate 500 mg calcium (1,250 mg) Tablet
500 mg PO DAILY
biotin 10,000 mcg Capsule
10,000 mcg PO DAILY
folic acid 1 mg Tablet
1 mg PO DAILY
Visbiome 112.5 billion cell Capsule
1 cap PO DAILY
Tagrisso 80 mg Tablet
80 mg PO DAILY@1600
Discharge Orders:
Discharge Patient (As Directed); Ordered 04/16/25
Ordered By: Yelitza Sharma
Discharge Date and Time
Print Language: LAO
== END 2025-04-16 16:45 | disposition home or self-care (01) | DRG 640 ==
LOC: 4 WEST ACU 18:07
PROVIDERS: Physician Assistant; ADMITTING PHYSICIAN Hospitalist; EMERGENCY PHYSICIAN Emergency Medicine; FAMILY PHYSICIAN Nurse Practitioner
DX: E87.1 Hypo-osmolality and hyponatremia (principal); U07.1 COVID-19; C34.90 Malignant neoplasm of unspecified part of unspecified bronchus or lung; E86.1 Hypovolemia; G47.00 Insomnia, unspecified; R53.1 Weakness; J45.909 Unspecified asthma, uncomplicated; Z87.891 Personal history of nicotine dependence; Z88.0 Allergy status to penicillin; Z88.6 Allergy status to analgesic agent; Z88.8 Allergy status to other drugs, medicaments and biological substances; Z88.5 Allergy status to narcotic agent; Z88.1 Allergy status to other antibiotic agents; Z88.2 Allergy status to sulfonamides; Z79.818 Long term (current) use of other agents affecting estrogen receptors and estrogen levels; Z79.899 Other long term (current) drug therapy
CPT/HCPCS: 80048; 80053; 81003; 81015; 82570; 82962; 83930; 83935; 84156; 84300; 84443; 85025; 85027; 96361; 96365; 99284

== ENCOUNTER → 2025-04-21 13:26 | Outpatient (REF) | payer MEDICARE, SELFPAY ==
[2025-04-21 16:21] LABS: ALT (SGPT) 16 U/L (0-35); AST (SGOT) 22 U/L (14-36); Albumin 4.3 g/dl (3.5-5.0); Alkaline Phosphatase 57 U/L (38-126); Blood Urea Nitrogen 14 mg/dl (7-17); Calcium 9.4 mg/dl (8.4-10.2); Carbon Dioxide 30 mmol/L (22-30); Chloride 98 mmol/L (98-107); Glucose 110 mg/dl (70-99); Potassium 4.5 mmol/L (3.5-5.1); Sodium 132 mmol/L (135-145); Total Protein 6.8 g/dl (6.3-8.2); eGFR > 60.00
== END ==
LOC: REG 13:26
PROVIDERS: FAMILY PHYSICIAN Nurse Practitioner
DX: Z09 Encounter for follow-up examination after completed treatment for conditions other than malignant neoplasm (principal)
CPT/HCPCS: 36415; 80053

== ENCOUNTER → 2025-05-18 11:12 | Outpatient (REF) | payer MEDICARE, SELFPAY ==
[2025-05-18 14:09] LABS: Hematocrit 37.0 % (37.0-47.0); Hemoglobin 11.8 g/dL (12.0-16.0); Mean Corp Hgb Conc. 31.9 g/dL (33.0-37.0); Mean Corpuscular Volume 96.9 fL (81.0-99.0); Nucleated Red Blood Cells % 0 %; Platelet Count 206 10^3/uL (130-400); Red Cell Dist. Width 14.3 % (11.5-14.5)
[2025-05-18 14:32] LABS: ALT (SGPT) 18 U/L (0-35); AST (SGOT) 22 U/L (14-36); Albumin 4.5 g/dl (3.5-5.0); Alkaline Phosphatase 64 U/L (38-126); Blood Urea Nitrogen 13 mg/dl (7-17); Calcium 9.6 mg/dl (8.4-10.2); Carbon Dioxide 30 mmol/L (22-30); Chloride 98 mmol/L (98-107); Glucose 53 mg/dl (70-99); Potassium 4.1 mmol/L (3.5-5.1); Sodium 135 mmol/L (135-145); Total Protein 6.8 g/dl (6.3-8.2); eGFR > 60.00
== END ==
LOC: REG 11:12
PROVIDERS: ATTENDING PHYSICIAN Internal Medicine Hematology & Oncology; FAMILY PHYSICIAN Nurse Practitioner
DX: C34.12 Malignant neoplasm of upper lobe, left bronchus or lung (principal)
CPT/HCPCS: 36415; 80053; 85025

== ENCOUNTER → 2025-05-21 08:19 | Outpatient (REF) | payer MEDICARE, SELFPAY | LOC: RAD 08:19 | PROVIDERS: ATTENDING PHYSICIAN Internal Medicine Hematology & Oncology; FAMILY PHYSICIAN Nurse Practitioner; OTHER PHYSICIAN Internal Medicine | DX: C34.12 Malignant neoplasm of upper lobe, left bronchus or lung (principal) | CPT/HCPCS: 71260; 74177; Q9967 ==